=== PATIENT | male | born 1955 | race Caucasian/White ===

== ENCOUNTER 2024-11-08 14:00 | Emergency (ER) | payer MEDICARE, BC | END 2024-11-08 15:25 | disposition home or self-care (01) | LOC: DL.ED 14:00 | DX: T83.9XXA Unspecified complication of genitourinary prosthetic device, implant and graft, initial encounter (principal); Z88.8 Allergy status to other drugs, medicaments and biological substances | CPT/HCPCS: 51702; 99283 ==